=== PATIENT | male | born 1945 | race Caucasian/White ===

== ENCOUNTER → 2020-11-08 12:38 | Outpatient (CLI) | payer MEDICARE, OTHER, SELFPAY ==
--- NOTE | 2020-11-08 12:55 | CR.HP_ITS ---
CR - History & Physical - General Arrival date:: 11/08/20 Arrival time:: 12:57 Date of Referral:: 11/01/20 Date of CR Evaluation:: 11/08/20 Referring Physician: Blair Driver Primary Diagnosis: S/P CABG Z95.1 - History of Present Cardiac Event Onset Date: Enter Onset Date of cardiac illnesses in Comment field below Coronary Artery Bypass Graft:: Yes - 09/22/2020 - Medications Home Medications: Ambulatory Orders Medication Instructions Recorded Acetaminophen 650 mg 11/08/20 Allopurinol 300 mg 11/08/20 Aspirin 81 mg 11/08/20 Clopidogrel 75 mg 11/08/20 Dofetilide 250 mcg 11/08/20 Dutasteride-Tamsulosin 0.5-0.4 11/08/20 Finasteride 5 mg 11/08/20 Metoprolol Succinate 25 mg 11/08/20 - Sleep Disorder Evaluation Hx of Sleep Apnea: Yes Do you snore loudly (louder than talking or can be heard through closed doors)?: Yes Do you often feel tired/ fatigued/ sleepy during daytime?: No Has anyone observed you stop breathing during sleep?: No History of Hypertension (for STOP score): No STOP Results: Negative Advanced Directives - Advanced Directives Power of Motor Coach Bus Driver: Yes Living Will: Yes Advance Directives Information Provided: Yes Advance Directives on File: Yes DNR Order?:: No - MOLST See MOLST form: No Past Medical History - Covid-19 Screening Fever: No Unexplained muscle aches: No Current respiratory symptoms: No Upper respiratory infections symptoms: No Gastro-intestinal symptoms: No Bwh-Dlyh-Tqtbrr symptoms: No Has tested positive for COVID-19 in last 30 days: No Had contact w/person w/symptoms or Covid-19 (+) last 14 days: No Has High Risk Exposures ID'd by Health dept/Inf Control team: No 65 years or older:: Yes Lives in Assisted Living facility:: No Has a chronic lung disease or moderate to severe asthma:: No Has a serious heart condition:: Yes Immunocompromised:: No Severely obese (Body Mass Index of 40 or higher):: No Diabetic:: No Has chronic kidney disease undergoing dialysis:: No Has liver disease:: No - Past Surgical History Surgical History: - - s/p CABG, A-fib s/p ablation, increased BMI, erectile dysfunction, GERD, GOUT, BERLIN, osteoarthritis Social History - Smoking History Smoking Status: Former smoker Years Smokin Packs Smoked per Day: 1.5 Hx Smoking Cessation Date: 08/31/75 Hx Tobacco Use: Yes Hx Smoking Exposure: Yes - Alcohol Use Alcohol Usage: Yes - socially - Substance Abuse Hx Substance Use: No - Occupation Occupation (List type of work in comments):: Retired - Hobbies, Recreation, Social Activities Hobbies: Other - fishing, shooting Recreational Activities: I am able to engage in all my recreational activities Social Environment - Status Marital Status: - Current Living Arrangements Living Environment:: Spouse - Children How many children do you have?: 2 Do any of your children live nearby?: Yes - Safety Do you feel safe in your surroundings?: Yes Review of Systems - Review of Systems Hints: Right click = Denies (Slash). Left click = Reports (Randolph) Review of Present Symptoms: Reports: Heart Arrhythmia/Irregularities - hx of a- fib pt had an ablation, Appetite - Normal, Sleep - Normal. Denies: Shortness of Breath at Rest, Shortness of Breath with Exertion, PVD, Operative Discomfort, Angina, Wound Healing, Dizziness/Lightheadedness, Fatigue, Appetite - Special Diet, Sexual Changes - Pain Is Patient Pain Free?: No Pain Location: other - hip, knee, wrist pain Pain Level: 4/10 Risk Factor Assessment - Vital Signs Pulse Ox: 98 Blood Pressure: 88/60 - Pulse Pulse Rate: 78 Pulse Rhythm: Regular - Obesity Height: 5 ft 9 in Weight:: 105.868 kg Weight in Pounds: 233.4 lbs Body Mass Index (BMI): 34.4 Nutritional Referral for Obesity: No - Physical Inactivity Physical Inactivity: Reg Exercise 30 min/day - Risk Stratification Risk Guidelines: Lowest Risk: Risk Factor for Smoking, Moderate Risk: Risk Factor for Dyslipidemia, Risk Factor for Diabetes, Risk Factor for Obesity, Risk Factor for Hypertension, Risk Factor for Sedentary Lifestyle, Risk Factor for Depression - For Smoking Smoking Risk Guidelines: Smoking Low Risk: None or quit greater than 6 months ago. Smoking Moderate Risk: Smoker or quit 6 months or less ago. Smoking High Risk: Smoker - For Dyslipidemia Dyslipidemia Risk Guidelines: Low Risk: Moderate Risk: High Risk: 15-25% fat 25.1-29% fat >/= 30% fat. <7% sat fat 7-9% sat fat >9% sat fat. <150 mg chol 150-299 mg chol >/= 300 mg chol. LDL <100 LDL 100-129 LDL >/= 130. Chol/HDL ratio <5.0 Chol/HDL ratio 5.0-6.0 Chol/HDL ratio >6.0. Triglycerides <100 Triglycerides 100-149 Triglycerides >/= 150 - For Diabetes Mellitus Diabetes Risk Guidelines: Diabetes Low Risk: HgA1c <6.5% and/or FBG <120. Diabetes Moderate Risk: HgA1c 6.6-7.9% and/or FBG 120-180. Diabetes High Risk: HgA1c >/= 8% and/or FBG >180 - For Obesity/Overweight Obesity/Overweight Risk Guidelines: Obesity Low Risk: BMI <25.0. Obesity Moderate Risk: BMI 25-29.9. Obesity High Risk: BMI >/= 30.0 - For Hypertension Hypertension Risk Guidelines: Hypertension Low Risk: Systolic <120 and Diastolic <80. Hypertension Moderate Risk: Systolic 120-139 and Diastolic 80-89. Hypertension High Risk: Systolic >/= 140 and Diastolic >/= 90 - For Sedentary Lifestyle Sedentary Lifestyle Risk Guidelines: Sedentary Lifestyle Low Risk: >/= 1,500 kcal/week. Sedentary Lifestyle Moderate Risk: 700-1,499 kcal/week. Sedentary Lifestyle High Risk: < 700 kcal/week - For Depression Depression Risk Guidelines: Depression Low Risk: Not clinically depressed. Depression Moderate Risk: Mildly depressed. Depression High Risk: Clinically depressed Motivation - Motivation to Participate On a scale of 1 to 10, how prepared are you to commit to attending program?: 10 What do you see as barriers to successfully being able to complete the program?: none What do you see as the benefits of succesfully completing the program? In other words, what do you hope to get out of participating in the program?: improved health Are there issues you are dealing with that will interfere with completing the program?: none Do you have a spouse or signficant other, family or friends who will help support you to complete the program?: spouse
--- NOTE | 2020-11-08 12:56 | PCM.CR.ITP ---
Diagnosis - General Information Admitting Diagnosis: S/P CABG Personal Learning Style:: Audio/Visual, Demonstration, Group, Individual Preference, Written Barriers to Learning: Cognitive/Learning Impairment, Cultural/Spiritual, Decreased Motivation, Emotional/Anxiety, Hearing Impairment, Language, Low Literacy, Mental Status, No Barriers, Physical Condition/Sensory Deficit, Vision Impairment - Education/Goals Cardiac Rehabilitation Goals: 1. Maintain the individual as the primary focus of care. 2. To improve the patient's quality of life. 3. Identification of cardiac risk factors and provide cardiac risk factor management. 4. Enhance the psychosocial status of the patient. 5. Reconditioning enough to allow the patient to resume customary activities. 6. Control symptoms of cardiac disease Personal Goals: Initial Assessment: Improve energy level, Participate in home exercise program, Improve muscle strength and endurance, Improve diet and eating habits (eat healthier) Scale for measuring improvement of personal goals: Enter appropriate number in Comments. 2 = Unchanged. 3 = Slightly Better. 4 = Moderate Improvement. 5 = Met my Goal - Diagnosis & Disease Process 30 day Reassessments:: Not Met 30 day Reassessments:: Not Met 30 day Reassessments:: Not Met 30 day Reassessments:: Not Met Final Reassessments:: Not Met - Safety Referral to Physical Therapy: No Referral to [facility] Case Management: No Fall Risk Assessed:: Yes Assistive Devices:: None Exercise - Initial Assessment - Visit Date of Eval: 11/08/20 - initial eval Mets: Pre-: >7 METS for 30 minutes by discharge - Stress Test Blood Pressure: 88/60 MET LEVEL:: 3 EKG: Hx of a-fib recent ablation - Physician Prescribed Exercise Modalities: Treadmill, Biodyne, Airdyne, NuStep, SciFit Frequency: 3x/week for 12 weeks [36 sessions] Intensity: 60-80% of age predicted maximum heart rate reserve Current METSs:: 3 Target Heart Rate:: 95-124 Resting Blood Pressure: 88/60 EKG Type: hx a-fib with recent ablation - Outcomes & Goals Goals:: Verbalizes understanding of THR, RPE & goal METS by session 6, Documents in home exercise log/reports 30 min aerobic 5 day/wk by DC, Demonstrates accurate pulse taking by DC, Other additional outcome/goals: see below - Intervention & Plan Exercise Program Goals: Instruct on personal THR & RPE, Instruct on MET level & personal MET goal, Show patient to take own pulse /validate performance until accurate, Instruct on home exercise, Other additional plan/int - Physical Activity Home Exercise Physical Activity - Home Exercise: Safe Exercise, Warm-up, Self-monitoring, Cool-Down, Home Exercise > 30 min Daily, Sitting Time <3 hours/daily - Outcomes & Goals Outcomes/Goals: Demonstrates correct Warm-up/exercise Cool-Down (S3) if = 2.5 METs, Verbalizes symptoms of exercise intolerance by Session 3 (S3), Demonstrate safe equipment use (S3) & follows exercise prescrition (6), Other: See below Nutrition - Initial Assessment - Program Goals Nutrition Program Goals: LDL <100 optimal. 100 - 129 Near optimal. 130 - 159 Borderline High. 160 - 189 High. Total Cholesterol <200 desirable. 200 - 239 Borderline High. >/= 240 High. HDL < 40 Low >/=60 High. Triglycerides <150 desirable. <199 optimal. VlDL 5 - 40. HgbA1C <7%. BMI <25 Patient has diagnosis of Hyperlipidemia (ICD E78)?: Yes - Visit Date of Assessment:: 11/08/20 - initial eval - Cholesterol/Lipids Determine presence & major risk factors that modify LDL goal: Cigarette smoking, Hypertension or hypertensive medication, Low HDL cholesterol <40 mg/dL*, Family history of premature CHD in Male < 55 years: female <65 yearsFa, Age men > 45 years; women >/= 55 years Outcomes/Goals: Pt IDs own risk factors & lifestyle modifications by Session 10, Verbalizes symptoms of angina & response by session 3., Pt independently manages, Other Additional Outcomes/Goals: Intervention/Plan: Advocate for lipid panel cholesterol medication if applicable, Instruct on personal lipid levels & lipid goals/NCEP guidelines, Instruct on cholesterol, Other additional plan/int - Diabetes (Other Core Measures) Diabetes Type: Not Applicable - Weight Mgt (Other Care) Height: 5 ft 9 in Weight:: 105.868 kg BMI: 34.4 Outcomes/Goals: Pt sets, maintains & shows weight loss goal & trend during rehab, Other additional outcomes/goals Intervention/Plan: Instruct on ideal BMI & set weight loss goal w/patient, Assist pt to ID & incorporate diet changes for weight loss by S9, Refer to Structured Weight Loss program as appropriate, Encourage goal of using 250-300dcal per session for weight loss, Other additional plan/interventions - Healthy Eating Habits Will attend diet classes:: Yes Outcomes/Goals:: Consume diet rich in vegs,fruits,whole grain/high fiber,fish,lean meat, Limit sat/trans fats,cholesterol & added salts & sugars, Other additional outcome/goals: Intervention/Plan:: Assess current eating habits, Other Additional plan/interventions - Education Gave educational materials for:: Signs & symptoms of hypoglycemia, Signs & symptoms of hyperglycemia, Relate diabetes to coronary artery disease, Healthy eating Medical - Initial Assessment - Visit Date of Eval: 11/08/20 - initial eval - Medication Compliance Preventative Medication(s):: Aspirin, Beta miriam H/O mental health issues: depression, anxiety, or addiction?: No Doesn?t believe in the benefits of treatment?: No Believes medications are unnecessary or harmful?: No Has a concern about medication side effects?: No Expresses concern over the cost of medications?: No Outcomes/Goals: Verbalizes medications,desired effect & common side effects @ DC, Pt self-reports following medication regimen, Keeps card in wallet w/medications listed by DC, Other additional outcome/goals: Interventions/plans: Instruct on medication effects & side effects, Review medication list w/patient every two weeks, Instruct importance of taking meds as ordered & assist problem solving, Other additional - Tobacco Use Tobacco Use: Non-smoker Do you use smokeless tobacco?: No - Hypertension Hypertension Diagnosis:: Not Applicable [place] [employer] Hypertension Guidelines: [place] [employer] Hypertension Guidelines. Normal BP Less than 120/80. Elevated BP 120/80. Hypertension Stage 1: BP 130-139/80-89. Hypertesnion Stage 2: BP 140 or higher/90 or higher. Hypertension Crisis: BP higher than 180/120 Outcomes/Goals: Able to verbalize/achieve optimal blood pressure <130/80, Incorporates diet changes & exercise for blood pressure control by DC, Other additional outcomes/goals - Tobacco Cessation Referral Smoking Cessation Referral:: No Individual Education/Counseling:: No Education Schedule Given:: Yes Psychosocial - Initial Assess - VIsit Date of Eval: 11/08/20 - initial eval History of previous Mental disease:: No - Target Goals Target Goals: Assess presence or absence of depression. Using a valid screening tool, maximizes coping skills. Positive support system - Psychosocial Test phq-9 Severity: Severity. 1-4 Minimal Depression. 5-9 Mild Depression. 10-14 Moderate Depression. 15-19 Moderately Sever Depression. 20-27 Severe Depression. Rule: - Outcomes/Goals: See list Psychosocial Outcomes/Goals:: ID's personal stressors & 2 strategies to manage stress by discharge, Other Additional outcome/goals: - Intervention/Plan: See List Interventions/Plan:: Assess stressors,coping strategies & signs of derpression on admission, Instruct/assist pt to develop coping & personal stress Mgt strategies, Refer to Behavioral Health if appropriate, Refer to Physician if appropriate, Instruct patient to recognize signs & symptoms of depression, Instruct patient to recog, Other additional plan/intervention Patient Health Questionnaire Initial Assessment 1. Little interest or pleasure in doing things: Not at all 2. Feeling down, depressed, or hopeless: Not at all 3. Trouble falling or staying asleep, or sleeping too much: Not at all 4. Feeling tired or having little energy: Not at all 5. Poor appetite or overeating: Several days 6. Feeling bad about yourself -- or that you are a failure or have let yourself or your family down: Not at all 7. Trouble concentrating on things, such as reading the newspaper or watching television: Not at all 8. Moving or speaking so slowly that other people could have noticed. Or the opposite - being so fidgety or restless that you have been moving around a lot more than usual: Not at all 9. Thoughts that you would be better off , or of hurting yourself in some way: Not at all How difficult have these problems made it for you to do your work, take care of things at home, or get along with other people?: Not difficult at all Total Score: 1 JADA-Q SV Test - Statements CAD is a disease of the arteries in the heart: False Examples of risk factors for heart disease: False Angina is chest pain or discomfort: True The benefits of resistance training include: True Eating more meat and dairy products: False Anti-platelet medications such as aspirin are important: True The only effective way to manage stress: False An exercise warm-up slowly increases heart rate: True Prepared, processed foods usually have high sodium: True Depression is common after a heart attack: True The statin medications lower cholesterol: True To control blood pressure, lower the amount of sodium: True If someone gets chest discomfort during walking: False Transfats are partially hydrogenated vegetable oils: True Sleep apnea that is not treated increases the risk: False To control cholesterol, one should become a vegetarian: False Someone knows if he/she is exercising at the right level: True Diabetes cannot be prevented with exercise & health eating: False Stress is a large risk for heart attack: True A diet that can help lower blood pressure is rich in: I Don't Know - Total Score Total Correct Responses: 18 Self-Efficacy Initial Assessment We would like to know how confident you are in doing certain activities. Please select your confidence level for:: Select your confidence level for the following using the scale 1-10 where 1 is not at all confident and 10 is totally confident. Your score is the average of all 6 responses. Fatigue: How confident are you that you can keep the fatigue caused by your disease from interfering with the things you want to do? Select Number: 10 Physical Discomfort or Pain: How confident are you that you can keep the physical discomfort or pain of your disease from interfering with the things you want to do? Select Number: 10 Emotional Distress: How confident are you that you can keep the emotional distress caused by your disease from interfering with the things you want to do? Select Number: 10 Other Symptoms or Health Problems: How confident are you that you can keep other symptoms or health problems from interfering with the things you want to do? Select Number: 9 Different Tasks and Activities: How confident are you that you can do the different tasks and activities needed to manage your health condition so as to reduce your need to see a doctor? Select Number: 10 Medication: How confident are you that you can do things other than just taking medication to reduce how much your illness affects your everyday life? Select Number: 10 Total Score:: 9 Nutrition Survey - Nutrition Survey Instructions Scoring Instructions: Scoring is as follows: Yes = 1 points. No = 0 point. Patient score that is >/=12 is considered to be at potential nutritional risk and could benefit from a referral to a registered dietitian. - Nutrition Survey Initial Have you lost >10 lbs over the past 2 months without trying?: Yes Are you following a special diet at home for diabetes, low fat, or low salt?: No Are you interested in meeting with a dietitian for help understanding your diet?: No Do you eat less than 3 meals a day?: No Do you eat fatty meats (mendoza, sausage, ribs, etc), fried foods, desserts, large amounts of salad dressings, margarine, butter, or cheese most days?: Yes Do you have food allergies? [Enter types in comment field]: No Do you eat in restaurants more than 3 times a week?: No Do you season food with salt, seasoning salt, or garlic salt?: No Do you used canned, boxed, frozen meals, or soups, seasoning packets?: No Total Score:: 2
[2020-11-08 14:16] VITALS: BP 88/60; BMI 34.4
[2020-11-08 14:17] VITALS: BP 88/60; PULSE 78; O2SAT 98; BMI 34.4
== END ==
PROVIDERS: PCP Internal Medicine Infectious Disease; Referring Provider Internal Medicine Cardiovascular Disease; Visit Provider Internal Medicine Cardiovascular Disease
DX: Z95.1 Presence of aortocoronary bypass graft (principal); Z87.891 Personal history of nicotine dependence

== ENCOUNTER 2020-11-26 09:15 | Outpatient (RCR) | payer MEDICARE, OTHER, SELFPAY ==
[2020-11-08 13:54] VITALS: BMI 34.4
== END 2020-11-28 23:59 ==
LOC: CR 09:15
PROVIDERS: PCP Internal Medicine Infectious Disease
DX: I25.2 Old myocardial infarction (principal); Z95.1 Presence of aortocoronary bypass graft; Z95.5 Presence of coronary angioplasty implant and graft
CPT/HCPCS: 93798

== ENCOUNTER 2020-12-03 09:15 | Outpatient (RCR) | payer MEDICARE, OTHER, SELFPAY ==
[2020-11-08 14:16] VITALS: BMI 34.4
[2020-11-08 14:17] VITALS: BMI 34.4
--- NOTE | 2020-12-03 07:09 | PCM.CR.ITP ---
Exercise - 30-day Assessment - Visit Date of Eval: 12/03/20 Session #:: 8 - started 11/12/2020 - Physician Prescribed Exercise Modalities: Treadmill, Rower, Airdyne, NuStep Frequency: 3x/week for 12 weeks [36 sessions] Intensity: 60-80% of age predicted maximum heart rate reserve Current METSs:: 5.0 increased from 3.5 Target Heart Rate:: 95-124 Current RPE:: 12-13 Maximum Excercise HR:: 135 Resting Blood Pressure: 110/60 Maximum Exercise Blood Pressure: 130/68 EKG Type: NSR to sinus tach with rare PVCs - Outcomes & Goals Goals:: Verbalizes understanding of THR, RPE & goal METS by session 6, Documents in home exercise log/reports 30 min aerobic 5 day/wk by DC, Demonstrates accurate pulse taking by DC - Intervention & Plan Exercise Program Goals: Instruct on personal THR & RPE, Instruct on MET level & personal MET goal, Show patient to take own pulse /validate performance until accurate, Instruct on home exercise - 30-day Reassessments 30 day Reassessments:: Progressing - Physical Activity Home Exercise Physical Activity - Home Exercise: Safe Exercise, Warm-up, Self-monitoring, Cool-Down, Home Exercise > 30 min Daily, Sitting Time <3 hours/daily - Outcomes & Goals Outcomes/Goals: Demonstrates correct Warm-up/exercise Cool-Down (S3) if = 2.5 METs, Verbalizes symptoms of exercise intolerance by Session 3 (S3), Demonstrate safe equipment use (S3) & follows exercise prescrition (6) - Intervention & Plan Plan/Intervention: Instruct warm-up & cool-down if exercising at > 2 METs, Instruct on symptoms of exercise intolerance & actions to take, Instruct & monitor on saf, Assess intial functional capacity & safety risk - 30-day Reassessments 30 day Reassessments:: Progressing Nutrition - 30-Day Assessment - Program Goals Nutrition Program Goals: LDL <100 optimal. 100 - 129 Near optimal. 130 - 159 Borderline High. 160 - 189 High. Total Cholesterol <200 desirable. 200 - 239 Borderline High. >/= 240 High. HDL < 40 Low >/=60 High. Triglycerides <150 desirable. <199 optimal. VlDL 5 - 40. HgbA1C <7%. BMI <25 Patient has diagnosis of Hyperlipidemia (ICD E78)?: Yes - Visit Date of Assessment:: 12/03/20 Session #:: 8 - Cholesterol/Lipids Triglycerides (mg/dL): 0 - not made available to [facility] Determine presence & major risk factors that modify LDL goal: Hypertension or hypertensive medication, Family history of premature CHD in Male < 55 years: female <65 yearsFa, Age men > 45 years; women >/= 55 years Outcomes/Goals: Pt IDs own risk factors & lifestyle modifications by Session 10, Verbalizes symptoms of angina & response by session 3., Pt independently manages Intervention/Plan: Instruct on personal lipid levels & lipid goals/NCEP guidelines, Instruct on cholesterol Referral to dietitian:: Yes 30-day Reassessments:: Progressing - Diabetes (Other Core Measures) Diabetes Type: Not Applicable - Weight Mgt (Other Care) Not Applicable: No Height: 5 ft 9 in - Weight:: 229 lb 8 oz - Down from 233.5 BMI: 33.9 Diagnosis Overweight/Obesity BMI> 30% ICD-10 E66: Yes Diagnosis High BMI/Morbid Obesity BMI> 35% ICD-10 Z68: No Outcomes/Goals: Pt sets, maintains & shows weight loss goal & trend during rehab Intervention/Plan: Instruct on ideal BMI & set weight loss goal w/patient, Assist pt to ID & incorporate diet changes for weight loss by S9, Refer to Structured Weight Loss program as appropriate, Encourage goal of using 250-300dcal per session for weight loss 30 day Reassessments:: Progressing - Healthy Eating Habits Will attend diet classes:: Yes Outcomes/Goals:: Consume diet rich in vegs,fruits,whole grain/high fiber,fish,lean meat, Limit sat/trans fats,cholesterol & added salts & sugars Intervention/Plan:: Assess current eating habits 30-day Reassessments:: Progressing Medical- 30-Day Assessment - Visit Date of Eval: 12/03/20 Session #:: 8 - Medication Compliance Preventative Medication(s):: Aspirin, Clopidogrel/P2Y12 inhibit, Statin/lipid, Beta miriam H/O mental health issues: depression, anxiety, or addiction?: No Doesn?t believe in the benefits of treatment?: No Believes medications are unnecessary or harmful?: No Has a concern about medication side effects?: No Expresses concern over the cost of medications?: No Outcomes/Goals: Verbalizes medications,desired effect & common side effects @ DC, Pt self-reports following medication regimen, Keeps card in wallet w/medications listed by DC Interventions/plans: Instruct on medication effects & side effects, Review medication list w/patient every two weeks, Instruct importance of taking meds as ordered & assist problem solving 30-day Reassessments:: Progressing - Tobacco Use Tobacco Use: Non-smoker - Hypertension Hypertension Diagnosis:: Hypertension ICD-10 I10 Resting Blood Pressure:: 110/60 - controlled on medication [place] [employer] Hypertension Guidelines: [place] [employer] Hypertension Guidelines. Normal BP Less than 120/80. Elevated BP 120/80. Hypertension Stage 1: BP 130-139/80-89. Hypertesnion Stage 2: BP 140 or higher/90 or higher. Hypertension Crisis: BP higher than 180/120 Peak Exercise Blood Pressure:: 130/68 Outcomes/Goals: Able to verbalize/achieve optimal blood pressure <130/80, Incorporates diet changes & exercise for blood pressure control by DC Interventions/plan: Instruct on optimal blood pressure, hypertension & medications, Instruct on effects of sodium, alcohol, stress, exercise &hypertension 30 day Reassessments:: Progressing - Tobacco Cessation Referral Smoking Cessation Referral:: No Individual Education/Counseling:: No Education Schedule Given:: Yes Psychosocial - 30-Day Assess - VIsit Date of Eval: 12/03/20 Session #:: 8 Not Applicable: Yes History of previous Mental disease:: No - Target Goals Target Goals: Assess presence or absence of depression. Using a valid screening tool, maximizes coping skills. Positive support system - Psychosocial Test Tool Used:: PHQ-9 Questionnaire phq-9 Severity: Severity. 1-4 Minimal Depression. 5-9 Mild Depression. 10-14 Moderate Depression. 15-19 Moderately Sever Depression. 20-27 Severe Depression. Rule: - Referral to Behavioral Health PS - Interventions: Yes Attend Stress Management Classes, No Referral to Behavioral Health if PHQ-9 score >9:, No Referral to [facility], No Referral to Physician if PHQ-9 if score is 5-9: - Outcomes/Goals: See list Psychosocial Outcomes/Goals:: ID's personal stressors & 2 strategies to manage stress by discharge - Intervention/Plan: See List Interventions/Plan:: Assess stressors,coping strategies & signs of derpression on admission, Instruct/assist pt to develop coping & personal stress Mgt strategies, Instruct patient to recognize signs & symptoms of depression, Instruct patient to recog - 30-day Reassessments: 30 day Reassessments:: Progressing Patient Health Questionnaire 30-Day Re-eval Assessment 1. Little interest or pleasure in doing things: Not at all 2. Feeling down, depressed, or hopeless: Not at all 3. Trouble falling or staying asleep, or sleeping too much: Not at all 4. Feeling tired or having little energy: Not at all 5. Poor appetite or overeating: Not at all 6. Feeling bad about yourself -- or that you are a failure or have let yourself or your family down: Not at all 7. Trouble concentrating on things, such as reading the newspaper or watching television: Not at all 8. Moving or speaking so slowly that other people could have noticed. Or the opposite - being so fidgety or restless that you have been moving around a lot more than usual: Not at all 9. Thoughts that you would be better off , or of hurting yourself in some way: Not at all How difficult have these problems made it for you to do your work, take care of things at home, or get along with other people?: Not difficult at all Total Score: 0 Self-Efficacy 30-Day Re-eval Assessment We would like to know how confident you are in doing certain activities. Please select your confidence level for:: Select your confidence level for the following using the scale 1-10 where 1 is not at all confident and 10 is totally confident. Your score is the average of all 6 responses. Fatigue: How confident are you that you can keep the fatigue caused by your disease from interfering with the things you want to do? Select Number: 10 Physical Discomfort or Pain: How confident are you that you can keep the physical discomfort or pain of your disease from interfering with the things you want to do? Select Number: 10 Emotional Distress: How confident are you that you can keep the emotional distress caused by your disease from interfering with the things you want to do? Select Number: 10 Other Symptoms or Health Problems: How confident are you that you can keep other symptoms or health problems from interfering with the things you want to do? Select Number: 10 Different Tasks and Activities: How confident are you that you can do the different tasks and activities needed to manage your health condition so as to reduce your need to see a doctor? Select Number: 10 Medication: How confident are you that you can do things other than just taking medication to reduce how much your illness affects your everyday life? Select Number: 10 Total Score:: 10
[2020-12-03 07:16] VITALS: BP 110/60; BP 130/68; BMI 33.9
== END 2020-12-29 23:59 ==
LOC: CR 09:15
PROVIDERS: PCP Internal Medicine Infectious Disease
DX: I25.2 Old myocardial infarction (principal); Z95.1 Presence of aortocoronary bypass graft; Z95.5 Presence of coronary angioplasty implant and graft
CPT/HCPCS: 93798

== ENCOUNTER → 2022-10-26 | Outpatient (CLI) | payer MEDICARE, OTHER, SELFPAY | END | disposition home or self-care (01) | LOC: LABSPEC 16:30 | PROVIDERS: PCP Internal Medicine; Referring Provider Urology; Visit Provider Urology | DX: N30.00 Acute cystitis without hematuria (principal) | CPT/HCPCS: 87086 ==

== ENCOUNTER 2023-11-25 19:23 | Emergency (ER) | payer MEDICARE, OTHER, SELFPAY ==
[2023-11-25 19:23] VITALS: BP 138/73; PULSE 70; RESP 14; TEMP 36.5; O2SAT 98; BMI 34.5
--- NOTE | 2023-11-25 19:33 | EX.ED.UPPERE ---
HPI History of Present Illness Chief Complaint: Upper Extremity Injury Narrative Narrative: 78-year-old male, [id number], presents with injury to his right hand that he sustained yesterday. 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 He was holding a pad to allow them to swing against his body, and hit the pad. His right hand was underneath it. One of the boys had struck the dorsum of his hand as it was near the edge of the pad. Patient states that he had moved his hand and allow another player to swing, and hit him in the dorsum of the hand underneath the pad, causing him pain. He now has pain when he moves his right index finger. He has noticed swelling on the dorsum of his right hand. He thinks maybe he either has a sprain of his tendon versus a stress fracture . He denies other injury. Although it may have broke the skin, he states that his tetanus immunization is current. He denies other injury. His wanted to come to make sure that his hand was not broken. [facility] Medical History Arthritis Back problem Carpal tunnel syndrome, left Difficulty in urination Gout Hearing problem Heart disease History of cardioversion Presence of tooth-root and mandibular implants Vascular disease Home Medications Allopurinol 300 mg PO QHS 05/10/22 [History Last Taken Unknown] Finasteride 5 mg PO 1XD 05/10/22 [History Last Taken Unknown] tamsulosin 0.4 mg capsule 0.4 mg PO DAILY 05/10/22 [History Last Taken Unknown] aspirin 81 mg capsule 81 mg PO DAILY 11/25/23 [History Last Taken Unknown] rosuvastatin 10 mg tablet 10 mg PO QHS 11/25/23 [History Last Taken Unknown] sildenafil (pulm.hypertension) 20 mg tablet (Revatio) 20 mg PO Q24H 11/25/23 [History Last Taken Unknown] Allergy/AdvReac Type Severity Reaction Status Date / Time No Known Allergies Allergy Verified 11/25/23 19:24 Family History Father Alcoholism Cancer Heart disease Myocardial infarction Mother Arthritis Myocardial infarction Heart disease Surgical History H/O angioplasty H/O cervical spine surgery H/O colonoscopy H/O left heart catheterization by ventricular puncture History of hernia surgery History of left knee replacement History of quadruple bypass History of right hip replacement History of tonsillectomy Previous back surgery S/P arthroscopic surgery of left knee S/P arthroscopic surgery of right knee Social History adopted: No household members: spouse housing: house number of children: 2 current occupational status: retired 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 HEENT: No sore throat. No neck pain. No loss of vision. No rhinorrhea. Cardiovascular: No chest pain. No palpitations. No pedal edema. Respiratory: No cough, no shortness of breath. Abdominal: No abdominal pain. No nausea. No vomiting. Genitourinary: No dysuria. No hematuria. Musculoskeletal: No myalgias. Right hand pain, and swelling on dorsum. Neurologic: No headaches. No dizziness. No lightheadedness. Skin: No rash. No change in color. Psychiatric: No depression. No anxiety. EXAM Physical Exam Narrative Exam Narrative: Afebrile. Vital signs noted. HEENT: Normocephalic. Atraumatic. PERRL, EOMI. Neck soft and supple. No point tenderness or step off. Cardiovascular: Regular rate and rhythm. No murmurs, rubs, or gallops appreciated. Respiratory: No tachypnea. Lungs clear to auscultation bilaterally. Gastrointestinal: Abdomen soft, nontender, with normoactive bowel sounds. No rebound or guarding. Neurological: Awake. Alert. Nonfocal, nonlateralizing. Skin: No rash. Normal color. No pallor. Musculoskeletal: No pedal edema. Swelling on dorsum of right hand at base of second digit and along second metacarpal. Good capillary refill all fingers. Able to oppose thumb. Uninjured at wrist and above.. Const Vital Signs: 11/25/23 19:23 Temperature 97.7 F L Temperature Source Temporal Pulse Rate 70 Respiratory Rate 14 Blood Pressure 138/73 H Blood Pressure Mean 94 Pulse Ox 98 Oxygen Delivery Method Room Air MDM MDM MDM Narrative Medical decision making narrative: Patient states he took Tylenol prior to arrival and declines analgesia here. In the differential diagnosis is hand contusion versus fracture of metacarpal/other bone. X-rays were obtained of the right hand in 3 views and interpreted independently by myself. There is a midshaft fracture of the second metacarpal. I reviewed the radiology report which confirms my independent interpretation. I discussed patient with Dr. Ennis with orthopedics who would like the patient placed in a volar resting splint made with Ortho-Glass and follow-up as an outpatient. Patient declined any stronger narcotic analgesia and prefers [id number] medications. Additionally, I offered a sling for comfort should his splint become too heavy and he declined this as well. At this point in time, I feel he can be discharged to follow-up. Return instructions to the emergency department reviewed. Disposition is discharged home in stable condition. Procedures Upper Extremity Splints Upper Extremity Splint: Orthoglass and Volar Splint Fabrication: Fabricated Location: Right Discharge Plan Triage Chief Complaint: Upper Extremity Injury ED Provider: Gui Willis Dx/Rx/DC Orders Clinical Impression: Fracture, metacarpal shaft, Contusion of hand, right Instructions: ED Closed Hand Fracture (Adult) Prescriptions: No Action tamsulosin 0.4 mg capsule 0.4 mg PO DAILY Rx Instructions: take 2 caps daily Allopurinol 300 mg PO QHS Finasteride 5 mg PO 1XD aspirin 81 mg capsule 81 mg PO DAILY rosuvastatin 10 mg tablet 10 mg PO QHS Patient Comments: TAKE 2 TABLETS BY MOUTH EVERY DAY AT BEDTIME sildenafil (pulm.hypertension) [Revatio] 20 mg tablet 20 mg PO Q24H Primary Care Provider: Isa Funez Referrals: Mike Ennis MD [Med Staff - Active Staff] - 1 Week Isa Funez MD [Primary Care Provider] - Activity Restrictions/Additional Instructions: Call tomorrow for an appointment to be seen by orthopedics. Continue [id number] medications as needed for analgesia. Ice and elevate your right hand when you can. Disposition Disposition: Home, Self Care
--- NOTE | 2023-11-25 19:35 | RAD_ITS ---
STUDY: XR Hand Min 3 Views REASON FOR EXAM: Male, 78 years old. Trauma TECHNIQUE: XR Hand Min 3 Views RIGHT COMPARISON: None. FINDINGS: There is joint space narrowing of the radiocarpal articulation consistent with degenerative arthrosis. Normal distal radioulnar joint. Normal visualized carpal bones. Normal carpal articulations There is degenerative arthrosis of the carpometacarpal (CMC) articulation of the thumb. Normal second through fifth carpometacarpal joints. Fractures of the midshaft of the second metacarpal bone. There is degenerative arthrosis of the metacarpophalangeal (MCP) joints. There is degenerative arthrosis of the interphalangeal joint of the thumb with articular joint space narrowing. Normal proximal and distal phalanges of the thumb. Normal metacarpophalangeal joints of the second through fifth fingers. There is diffuse articular joint space narrowing of the distal interphalangeal joints of the second through fifth fingers, but without erosive changes or periarticular soft tissue swelling. Normal phalanges of the second through fifth fingers. The soft tissue structures are unremarkable. RAD/Hand Min 3 Views IMPRESSION: Fractures of the midshaft of the second metacarpal bone. Electronically Signed: Molina Eaton MD at 19:51 EST ,
--- OUTSIDE RECORDS SUMMARY | 2023-11-25 19:53 | XMS RPT_ITS | CCD ---
Author Name Unknown Address [address] [place] [address] Organization [facility] Care Team Providers Care Staff Trainer Name Role Phone Jennifer Davies Unavailable Podugu, Blair Unavailable Unavailable Lovell Salinas Mauro Unavailable Unavailable Lovell, Salinas Mauro Unavailable Unavailable [facility], Physician Unavailable Unavailable [facility], Physician Unavailable Unavailable Lovell, Salinas A Unavailable Unavailable Lovell, Salinas A Unavailable Unavailable VA, Physician Unavailable Unavailable Lovell, Salinas A Unavailable Unavailable Lovell, Salinas Mauro Unavailable Unavailable Jennifer Davies Unavailable Unavailable Jennifer Davies Primary Care Provider [phone] Podugu, Blair Unavailable Unavailable Omnilsa, Yasser Primary Care Provider [phone] Neisha, Blair Unavailable Unavailable Jennifer Davies MD Primary Care Provider [phone] Blair Driver MD Unavailable Unavailable SALINAS LOVELL Attending Unavailable DESTINEE DAVIESSSWIL Primary Care Unavailable SALINAS LOVELL Admitting Unavailable JENNIFER DAVIES Primary Care Unavailable SALINAS LOVELL Referring Unavailable SALINAS LOVELL Attending Unavailable OMNILSA, YASSER Primary Care Unavailable SALINAS LOVELL Attending Unavailable OMRAN, YASSER Primary Care Unavailable KEKE MONCADA, DR RODRIGUEZ Primary Care Physician KEKE MONCADA, DR RODRIGUEZ Primary Care Physician JAGDEEP MONCADA, VESTA Primary Care Physician [phone] JAGDEEP MONCADA, VESTA Primary Care Unavailable NEISHA MONCADA, DR MARIE Attending Unavailable APURVA MONCADA, DR GILMAN Consulting Unavailab marshal GANNON MD, VESTA Primary Care Unavailable WAI LAWSON MD Admitting Unavailable WAI LAWSON MD Attending Unavailable NEISHA MONCADA, DR MARIE Referring Unavailable KISHOR BYRD MD Attending Unavailable JENNIFER DAVIES MD Consulting Unavailable KISHOR BYRD MD Admitting Unavailable KISHOR BYRD MD Primary Care Unavailable PROVIDER, UNKNOWN Consulting Unavailable PROVIDER, UNKNOWN Consulting Unavailable PROVIDER, UNKNOWN Consulting Unavailable JENNIFER DAVIES MD Consulting Unavailable ALAN [employer]GG [employer]CHO[employer] JANITOR Admitting Unavailable FISH, ALAN SCHOOL JANITOR Primary Care Unavailable FISH, ALAN SCHOOL JANITOR Attending Unavailable PROVIDER, UNKNOWN Consulting Unavailable PROVIDER, UNKNOWN Consulting Unavailable PROVIDER, UNKNOWN Consulting Unavailable Allergies Allergy Classification Reported Allergen(s) Allergy Type Date of Onset Reaction(s) Facility (1 source) No Known Medication Allergies; Translations: [No Known Medication Allergies] Propensity to adverse reactions to drug (disorder) [facility] Repository (1 source) No Known Allergies; Translations: [No Known Allergies] Propensity to adverse reactions to drug (disorder) [facility] Repository Medications Current Medications Medication Drug Class(es) Dates Sig (Normalized) Sig (Original) acetaminophen 325 mg oral capsule (1 source) Start: 07-20-2021 acetaminophen 325 mg oral capsule Dose : 325 mg = 1 cap(s), Oral, q4h, PRN as needed for fever, # 20 cap(s), 0 Refill(s) Start Date: 07/20/21 Status: Ordered allopurinol 300 mg oral tablet (15 sources) Xanthine Oxidase Inhibitor Start: 02-25-2020 allopurinol 300 mg oral tablet Dose : 300 mg = 1 tab(s), Oral, qDayPC, 0 Refill(s) Start Date: 02/25/20 Status: Ordered Completed/Discontinued Medications Medication Drug Class(es) Dates Sig (Normalized) Sig (Original) acetaminophen 325 mg / oxyCODONE hydrochloride 5 mg oral tablet (1 source) Opioid Agonist Start: 10-04-2017 End: 10-17-2017 oxyCODONE-acetamin ophen (PERCOCET) 5-325 mg per tablet aspirin 81 mg delayed release oral tablet (6 sources) Nonsteroidal Anti-inflammatory Drug End: 06-24-2020 take 1 tablet by mouth once daily aspirin 81 MG EC tablet Take 81 mg by mouth daily. 0 06/24/2020 Discontinued (Discontinued by another clinician) naproxen 500 mg oral tablet (5 sources) Nonsteroidal Anti-inflammatory Drug End: 06-24-2020 take 1 tablet by mouth once daily naproxen (NAPROSYN) 500 MG tablet Take 500 mg by mouth daily. 0 06/24/2020 Discontinued (Discontinued by another clinician) Problems Active Problems Problem Classification Problem Date Documented Da te Episodic/Chronic Cardiac dysrhythmias (5 sources) Paroxysmal atrial fibrillation 01-05-2020 Chronic Coronary atherosclerosis and other heart disease (5 sources) Coronary arteriosclerosis 01-05-2020 Chronic Past or Other Problems Problem Classification Problem Date Documented Da te Episodic/Chronic Unclassified (1 source) Primary osteoarthritis of both hips Results Test Name Value Interpretation Reference Range Facil ity Vital Signs Date Time Vital Sign Value Performing Clinician Facility 10-27-2021 10:30-0500 Body temperature 96.62 [degF] DR GEOVANNY GURROLA MD [facility] 10-27-2021 10:30-0500 Diastolic blood pressure 82 mm[Hg] DR GEOVANNY GURROLA MD [facility] 10-27-2021 10:30-0500 Heart rate 80 /min DR GEOVANNY GURROLA MD [facility] 10-27-2021 10:30-0500 Mean blood pressure 100 mm[Hg] DR GEOVANNY GURROLA MD [facility] 10-27-2021 10:30-0500 Reason For Taking VItal Signs DR GEOVANNY GURROLA MD [facility] 10-27-2021 10:30-0500 Respiratory rate 16 /min DR GEOVANNY GURROLA MD [facility] 10-27-2021 10:30-0500 Systolic blood pressure 136 mm[Hg] DR GEOVANNY GURROLA MD [facility] 10-27-2021 10:16-0500 Body temperature 96.98 [degF] DR GEOVANNY GURROLA MD [facility] 10-27-2021 10:16-0500 Diastolic Blood Pressure NBP [address] GEOVANNY GURROLA MD [facility] 10-27-2021 10:16-0500 Heart rate 81 /min DR GEOVANNY GURROLA MD [facility] 10-27-2021 10:16-0500 Mean blood pressure 86 mm[Hg] DR GEOVANNY GURROLA MD [facility] 10-27-2021 10:16-0500 Respiratory rate 18 /min DR GEOVANNY GURROLA MD [facility] 10-27-2021 10:16-0500 Systolic Blood Pressure NBP [address] GEOVANNY GURROLA MD [facility] 10-27-2021 10:03-0500 Diastolic Blood Pressure NBP [address] GEOVANNY GURROLA MD [facility] 10-27-2021 10:03-0500 Heart rate 77 /min DR GEOVANNY GURROLA MD [facility] 10-27-2021 10:03-0500 Mean blood pressure 82 mm[Hg] DR GEOVANNY GURROLA MD [facility] 10-27-2021 10:03-0500 Respiratory rate 16 /min DR GEOVANNY GURROLA MD [facility] 10-27-2021 10:03-0500 Systolic Blood Pressure NBP [address] GEOVANNY GURROLA MD [facility] 10-27-2021 09:47-0500 Diastolic Blood Pressure NBP [address] GEOVANNY GURROLA MD [facility] 10-27-2021 09:47-0500 Mean blood pressure 92 mm[Hg] DR GEOVANNY GURROLA MD [facility] 10-27-2021 09:47-0500 Systolic Blood Pressure NBP [address] GEOVANNY GURROLA MD [facility] 10-27-2021 09:32-0500 Body temperature 96.8 [degF] DR GEOVANNY GURROLA MD [facility] 10-27-2021 08:50-0500 Body temperature 96.64 [degF] DR GEOVANNY GURROLA MD [facility] 10-27-2021 08:45-0500 Body temperature 96.57 [degF] DR GEOVANNY GURROLA MD [facility] 10-27-2021 08:40-0500 Body temperature 96.55 [degF] DR GEOVANNY GURROLA MD [facility] 10-27-2021 05:40-0500 Body height 175.[address] GEOVANNY GURROLA MD [facility] 10-27-2021 05:40-0500 Body weight 97.[address] GEOVANNY GURROLA MD [facility] 10-27-2021 05:40-0500 Diastolic blood pressure 70 mm[Hg] DR GEOVANNY GURROLA MD [facility] 10-27-2021 05:40-0500 Heart rate 66 /min DR GEOVANNY GURROLA MD [facility] 10-27-2021 05:40-0500 Mean blood pressure 86 mm[Hg] DR GEOVANNY GURROLA MD [facility] 10-27-2021 05:40-0500 Systolic blood pressure 118 mm[Hg] DR GEOVANNY GURROLA MD [facility] 10-24-2021 13:16-0500 Body height 175.[address] GEOVANNY GURROLA MD [facility] 10-24-2021 13:16-0500 Body temperature 97.34 [degF] DR GEOVANNY GURROLA MD [facility] 10-24-2021 13:16-0500 Body weight 101.[address] GEOVANNY GURROLA MD [facility] 10-24-2021 13:16-0500 Body weight 33 kg/m2 DR GEOVANNY GURROLA MD [facility] 10-24-2021 13:16-0500 diastolic 66 mm[Hg] DR GEOVANNY GURROLA MD [facility] 10-24-2021 13:16-0500 Heart rate 66 /min DR GEOVANNY GURROLA MD [facility] 10-24-2021 13:16-0500 systolic 109 mm[Hg] DR GEOVANNY GURROLA MD [facility] 06-24-2020 10:15-0400 BMI (Body Mass Index) 33.97 kg/m2 Sal[place] [facility] 06-24-2020 10:15-0400 Body weight 104.33 kg Salinas [facility] 06-24-2020 10:15-0400 Height 175.3 cm Sal[place] [facility] 12-04-2019 08:27-0500 BMI (Body Mass Index) 33.67 kg/m2 [place] [facility] 12-04-2019 08:27-0500 Body weight 103.42 kg Salinas [facility] 12-04-2019 08:27-0500 Height 175.3 cm [facility] 07-24-2018 15:10-0400 BMI (Body Mass Index) 31.31 kg/m2 [facility] 07-24-2018 15:10-0400 Height 175.3 cm [facility] 07-24-2018 15:10-0400 Weight 96.16 kg [facility] 11-14-2017 12:58-0500 BMI (Body Mass Index) 33.97 kg/m2 [facility] 11-14-2017 12:58-0500 Height 175.3 cm [place] [facility] Work Phone: 11-14-2017 12:58-0500 Weight 104.33 kg Salinas [facility] Work Phone: 10-17-2017 13:05-0500 BMI (Body Mass Index) 33.97 kg/m2 [facility]: 10-17-2017 13:05-0500 Height 175.3 cm Sal[place] [facility] Work Phone: 10-17-2017 13:05-0500 [facility] 104.33 [facility] 06-20-2017 15:12-0400 BMI (Body Mass Index) 33.97 kg/m2 [facility]: 06-20-2017 15:12-0400 Height 175.3 cm [place] [facility] Work Phone: 06-20-2017 15:120400 Weight 104.33 kg Salinas Lovell [facility] Work Phone: Encounters Encounter Date Encounter Type Care Provider Facility Start: 09-25-2023 ambulatory KISHOR MONCADA [facility] Start: 09-14-2023 End: 09-15-[address] KALINA MIXON MD Facility:A Start: 09-12-2023 End: 09-13-2023 ambulatory VESTA GANNON MD Facility:A Start: 09-12-2023 End: 09-12-[address] BLAIR DRIVER MD [facility] Start: 09-04-2023 End: 09-04-2023 ambulatory JENNIFER MONCADA [facility] Start: 11-09-2021 End: 11-09-[address] GEOVANNY GURROLA MD [facility] Start: 10-27-2021 End: 10-27-[address] GEOVANNY GURROLA MD [facility] Start: 10-24-2021 End: 10-24-[address] GEOVANNY GURROLA MD [facility] Start: 09-21-2021 End: 09-21-[address] GEOVANNY GURROLA MD [facility] Start: 05-09-2021 End: 05-13-2021 ambulatory SALINAS LOVELL [facility] Start: 05-09-2021 End: 05-09-2021 Office outpatient visit 15 minutes [place] Lovell MD Work Phone: [facility] Procedures Date Procedure Procedure Detail Performing Clinician Start: 01-27-2022 Incisional hernia (disorder) DR GEOVANNY GURROLA MD Plan of Treatment Date Care Activity Detail Author Start: 06-01-2021 Influenza vaccination Sequential Influenza Vaccine (#1) [facility] Start: 12-22-2020 CLASS III : OFFICE VISIT CLASS III : OFFICE VISIT [facility] Start: 06-29-2020 End: 06-29-2020 Scanned Document 06/29/2020 Scanned Document Sports Medicine [place] Lovell MD [address] [place] [address] [phone] [facility] Start: 06-01-2020 Influenza vaccination given Sequential Influenza Vaccine (#1) [facility] Start: 06-01-2019 Influenza vaccination given SEQUENTIAL INFLUENZA VACCINE (#1) [facility] Start: 06-01-2018 Influenza vaccination SEQUENTIAL INFLUENZA VACCINE (#1) [facility] Start: 12-27-2017 Ambulatory 12/27/2017 Follow-Up Sports Medicine Sal[place] Lovell MD [address] [facility] [place] [address] [phone] [facility] Start: 11-14-2017 Ambulatory 11/14/2017 Follow-Up Sports Medicine [place] Lovell MD [address] [facility] [place] [address] [phone] [facility] Start: 08-15-2017 Ambulatory 08/15/2017 Office Visit Sports Medicine Sal[place] Lovell MD [address] [facility] [place] [address] [phone] [facility] Start: 06-21-2017 Ambulatory 06/21/2017 Scanned Document Sports Medicine Salinas Lovell MD [address] [place] [address] [phone] [facility] Start: 06-01-2017 Influenza vaccination SEQUENTIAL INFLUENZA VACCINE (#1) [facility] Work Phone: Start: 2011 Fall risk assessment Falls Risk Assessment [facility] Start: 2011 Pneumococcal vaccination PNEUMOCOCCAL VACCINE AGE 65+ (1 of 2 - PCV13) [facility] Work Phone: Start: 2011 Pneumococcal Vaccine: Age 65+ (1 of 1 - PPSV23) Pneumococcal Vaccine: Age 65+ (1 of 1 - PPSV23) [facility] Start: 2011 Ultrasound scan of abdominal aorta ABDOMINAL AORTIC ULTRASOUND [facility] Work Phone: Start: 2006 Zoster vacc, sc ZOSTER VACCINE [facility] Work Phone: Start: 1996 Administration of herpes zoster vaccine Zoster Vaccines (1 of 2) [facility] Start: 1996 Screening for malignant neoplasm of colon [facility] Start: 1996 ZOSTER VACCINES (1 of 2) ZOSTER VACCINES (1 of 2) [facility] Start: 1964 Hepatitis C antibody, confirmatory test Hepatitis C Screening [facility] Start: 1964 Hepatitis C screening Hepatitis C Screening [facility] Start: 1962 COVID-19 Vaccine (1 of 2) COVID-19 Vaccine (1 of 2) [facility] Start: 1958 Adolescent depression screening assessment Depression Screening (PHQ9) [facility] Start: 1958 COVID-19 Vaccine (1) COVID-19 Vaccine (1) [facility] Start: 1958 Depression screening using PHQ-9 (Patient Health Questionnaire 9) score Depression Screening (PHQ9) [facility] Start: 1949 History and physical examination, annual for health maintenance Wellness Visit [facility] Start: 1946 Abdominal aortic aneurysm screening Abdominal Aortic Ultrasound [facility] Start: 1946 CLASS III : CREATININE CLASS III : CREATININE [facility] Start: 1946 CLASS III : EKG CLASS III : EKG [facility] Start: 1946 CLASS III : POTASSIUM CLASS III : POTASSIUM [facility] Start: 1946 Class III: Magnesium Class III: Magnesium [facility] Start: 1946 Depression screening using PHQ-9 (Patient Health Questionnaire 9) score Depression Screening (PHQ9) [facility] Start: 1946 Fall risk assessment Falls Risk Assessment [facility] Start: 1946 Hepatitis C antibody, confirmatory test HEPATITIS C SCREENING [facility] Start: 1946 Prostate specific antigen measurement PSA Level [facility] Start: 1946 Screening for malignant neoplasm of colon Colorectal Cancer Screening: Colonoscopy [facility] Start: 1946 US scan of abdominal aorta Abdominal Aortic Ultrasound [facility] Start: 1946 HEPATITIS C SCREENING HEPATITIS C SCREENING [facility] Work Phone: Start: 1946 Screening colonoscopy COLONOSCOPY [facility] Work Phone: Start: 1946 End: 1946 Tetanus vaccination [facility] Work Phone: Payers Date Payer Category Payer Medicare 2014 Unknown xxxxxxxxx [id number] 3 2014 Unknown [id number] 3 2014 Unknown [facility] [id number] 2014-Present [id number] 2011 Medicare MEDICARE MEDICAR E PART A & B xxxxxxxxxxx 2011-Present [place] xxxxxxxxxxx [id number] 2011 Medicare MEDICARE MEDICAR E PART A & B [id number] 2011-Present [place] [id number] 2011 Medicare [id number] 1946 Unknown [id number] 1946 Unknown [id number] 1946 Unknown [id number] 1946 Unknown [id number] 1946 Unknown [id number] 1946 Unknown [id number] 1946 Unknown [id number] 1946 Unknown [id number] Medicare xxxxxxxxxx [id number] 3 [employer] ([employer] and others) [id number] Medicare [id number] 3 Social History Date Type Detail Facility Start: 12-27-2017 End: 09-19-2021 Tobacco smoking status [facility] Former smoker [facility] Phone: Medical Equipment Procedure Code Equipment Code Equipment Origin al Text Equipment Identifier Dates FDA Start: 10-27-2021 FDA Start: 10-27-2021 Robotic Assisted Laparoscopic Ventral He Unknown 10/27/[address] [facility] Start: 10-27-2021 Hospital Discharge instructions 10-27-2021 Note Date & Type Note Facility 10-27-2021 Hospital Discharg e instructions Patient Education 10/27/2021 10:59:33 -[facility] Discharge Instructions Template (07/2018) (CUSTOM) PHILIP SAME DAY SURGERY DISCHARGE INSTRUCTIONS PLEASE FOLLOW THE INSTRUCTIONS BELOW MARKED WITH AN X: _x__ Regular Diet: Start with clear liquids, then soup and crackers and gradually add other foods. _x__ Drink extra fluids. ___ Special Diet Instructions: ___ ACTIVITY: _x__ Avoid stress to suture line. Since you have had an anesthetic, it would be advisable not to drive, drink alcohol, or make major decisions over the next 24 hours. You may require more rest tonight and tomorrow. ___ May resume regular activity as tolerated. ___ Restrict activity as follows: ___ ___ Walk Only ___ ___ Do not go up and down stairs. ___ Do not ride in car until ___ ___ Do not drive car. ___ Do not have sexual intercourse. x___ No heavy lifting, pushing or straining. _x__ Other: _Follow Dr. Gurrola's verbal and printed instructions.__ BATHING/SHOWERING: ___ Sponge bathe until office visit. ___ Sitting in tub of warm water may relieve discomfort. ___ May tub bathe ___ May shower ___ On day after surgery sit in tub of warm water to soak off dressing. DRESSING: ___ Keep operative area dry and clean for ___ ___ Check the operative area for signs of bleeding. Apply pressure to the bleeding site if necessary and call your physician. ___ Change dressing as necessary using sterile dressing material or bandaid. ___ Reinforce dressing as necessary. ___ Change and care for wound as follows: ___ ___ Wear bra for ___ days following breast surgery for comfort. ___ Change drip pad as needed. ___ Wear scrotal support for comfort. WATCH FOR SIGNS OF INFECTION: (Usually appears 36-48 hours after surgery) Increased temperature (101 degrees Fahrenheit or higher) Redness or swelling Increased pain Foul odor or drainage. If you have any questions, please call your doctor at the number listed on your follow up instructions. Follow all instructions given to you by your physician. Please complete and return the survey you will be receiving in the mail to help us better serve our patients. Form: [id number]) R: 01/0710/27/2021 10:59:33 [facility] Hernia-Robot, Surgical Repair, Care After ([id number]) ([id number]) Hernia, Surgical Repair-Robotic Care After Refer to this sheet in the next few weeks. These discharge instructions provide you with general information on caring for yourself after you leave the hospital. Your caregiver may also give you specific instructions. Your treatment has been planned according to the most current medical practices available, but unavoidable complications sometimes occur. If you have any problems or questions after discharge, please call your caregiver. HOME CARE INSTRUCTIONS It is normal to be sore for a couple weeks after surgery. See your caregiver if this seems to be getting worse rather than better. Put ice on the operative site. ? Put ice in a plastic bag. ? Place a towel between your skin and the bag. ? Leave the ice on for 20 minutes at a time, every 2-3 hours for the first 2 days. Change bandages in 48 hours and leave open to air as directed. Keep the wound dry and clean. The wound may be washed gently with soap and water. Gently blot or dab the wound dry. Do not take baths, use swimming pools, or use hot tubs for 10 days, or as directed by your caregiver. Only take [id number] or prescription medicines for pain, discomfort, or fever as directed by your caregiver. Continue your normal diet as directed. Do not drive until your caregiver says it is okay. Do not play contact sports for 3 weeks, or as directed. Make an appointment to see your caregiver for stitches (sutures ) or staple removal when instructed. YOU MAY DO NORMAL ACTIVITIES TOLERATED, BUT NO EXTREME LIFTING OR VIGOROUS EXERCISE UNTIL FOLLOW-UP APPOINTMENT SEEK MEDICAL CARE IF: You have increased bleeding coming from the wounds. You have blood in your stool. You see redness, swelling, or have increasing pain in the wounds. You have fluid (pus ) coming from the wound. You have an oral temperature above 101.5. You notice a bad smell coming from the wound or dressing. You develop lightheadedness or feel faint. SEEK IMMEDIATE MEDICAL CARE IF: You develop a rash. You have difficulty breathing. You develop any reaction or side effects to medicines given. MAKE SURE YOU: Understand these instructions. Will watch your condition. Will get help right away if you are not doing well or get worse. Document Released: 04/06/2006 Document Revised: 09/05/2012 Document Reviewed: 08/17/2010 [facility] Patient Information 2012 [employer]. 10/27/2021 10:59:00 Laparoscopic Ventral Hernia Repair, Care After Laparoscopic Ventral Hernia Repair, Care After This sheet gives you information about how to care for yourself after your procedure. Your health care provider may also give you more specific instructions. If you have problems or questions, contact your health care provider. What can I expect after the procedure? After the procedure, it is common to have: Pain, discomfort, or soreness. Follow these instructions at home: Incision care Follow instructions from your health care provider about how to take care of your incision. Make sure you: ?Wash your hands with soap and water before you change your bandage (dressing) or before you touch your abdomen. If soap and water are not available, use hand heavy equipment mechanic. ?Change your dressing as told by your health care provider. ?Leave stitches (sutures), skin glue, or adhesive strips in place. These skin closures may need to stay in place for 2 weeks or longer. If adhesive strip edges start to loosen and curl up, you may trim the loose edges. Do not remove adhesive strips completely unless your health care provider tells you to do that. Check your incision area every day for signs of infection. Check for: ?Redness, swelling, or pain. ?Fluid or blood. ?Warmth. ?Pus or a bad smell. Bathing Do not take baths, swim, or use a hot tub until your health care provider approves. Ask your health care provider if you can take showers. You may only be allowed to take sponge baths for bathing. Keep your bandage (dressing) dry until your health care provider says it can be removed. Activity Do not lift anything that is heavier than 10 lb (4.5 kg) until your health care provider approves. Do not drive or use heavy machinery while taking prescription pain medicine. Ask your health care provider when it is safe for you to drive or use heavy machinery. Do not drive for 24 hours if you were given a medicine to help you relax (sedative) during your procedure. Rest as told by your health care provider. You may return to your normal activities when your health care provider approves. General instructions Take iqhc-ihy-xsrjohq and prescription medicines only as told by your health care provider. To prevent or treat constipation while you are taking prescription pain medicine, your health care provider may recommend that you: ?Take haap-lme-usgghvf or prescription medicines. ?Eat foods that are high in fiber, such as fresh fruits and vegetables, whole grains, and beans. ?Limit foods that are high in fat and processed sugars, such as fried and sweet foods. Drink enough fluid to keep your urine clear or pale yellow. Hold a pillow over your abdomen when you cough or sneeze. This helps with pain. Keep all follow-up visits as told by your health care provider. This is important. Contact a health care provider if: You have: ?A fever or chills. ?Redness, swelling, or pain around your incision. ?Fluid or blood coming from your incision. ?Pus or a bad smell coming from your incision. ?Pain that gets worse or does not get better with medicine. ?Nausea or vomiting. ?A cough. ?Shortness of breath. Your incision feels warm to the touch. You have not had a bowel movement in three days. You are not able to urinate. Get help right away if: You have severe pain in your abdomen. You have persistent nausea and vomiting. You have redness, warmth, or pain in your leg. You have chest pain. You have trouble breathing. Summary After this procedure, it is common to have pain, discomfort, or soreness. Follow instructions from your health care provider about how to take care of your incision. Check your incision area every day for signs of infection. Report any signs of infection to your health care provider. Keep all follow-up visits as told by your health care provider. This is important. This information is not intended to replace advice given to you by your health care provider. Make sure you discuss any questions you have with your health care provider. Document Released: 09/03/2013 Document Revised: 08/30/2018 Document Reviewed: 05/09/2017 [employer] Patient Education 2020 [employer] Follow Up Care 09/21/2021 14:12:14 With:GEOVANNY GURROLA MD, Surgery Address: [phone] When: Unknown Comments:call office for follow-up appointment With:GEOVANNY GURROLA Address: [address] [place], [place] [id number]- [facility] (1) When: Unknown Comments:Follow-up with Dr. Gurrola in 10-14 daysPlease call the office with any questions or concernsIbuprofen/Advil/Motrin 400 mg by mouth 4 times a day with meals; may alternate with 650 mg of Tylenol 4 times a day With:JENNIFER DAVIES Address:Unknown When: Unknown [facility] Evaluation + Plan note 10-26-2021 Note Date & Type Note Facility Symptomatic incisional herni a History of coronary disease History of coronary artery bypass grafting x4 PLAN: To the patient symptoms and physical findings I recommended operative intervention. Robotically assisted laparoscopic incisional hernia repair with mesh. The risks, benefits, alternatives, limitations and merits of operative and nonoperative therapy were discussed with the patient. Consent was obtained. [facility] History of Present illness Narrative 05-09-2021 Salinas Lovell MD - 05/09/2021 4:46 PM EDT Note Date & Type Note Facility 05-09-2021 History of Presen t illness Narrative Dictation on: 05/09/2021 4:49 PM by: SALINAS LOVELL [[id number]] documented in this encounter [facility] Evaluation + Plan note Note Date & Type Note Facility Evaluation + Plan note Future Appointments [facility] Evaluation + Plan note Radiology Note Date & Type Note Facility Evaluation + Plan note Future Appointments Appointment Date:09/14/2023 09:30:00 AM Scheduled Provider: Location:Heart Lab Appointment Type:CV Procedure - Heart Lab/Hybrid OR Appointment Date:10/08/2023 02:30:00 PM Scheduled Provider: Location:[facility] Appointment Type:CV OV Future Scheduled TestsNM Myocardial Spect Rest/Stress 08/31/23 [facility] Evaluation note Note Date & Type Note Facility documented in this encounter [facility] Hospital course Narrative Note Date & Type Note Facility Hospital course Narrative No data available for this section [facility] Hospital Discharge instructions Note Date & Type Note Facility Hospital Discharge instructions No data available for this section [facility] Progress note Note Date & Type Note Facility Progress note No data available for this section [facility] Assessments Diagnosis Status post total replacemen t of right hip - Primary Diagnosis Primary osteoarthritis of ri ght hip - Primary Diagnosis Primary osteoarthritis of ri ght hip - Primary Diagnosis Status post total replacemen t of right hip - Primary Diagnosis Primary osteoarthritis of ri ght hip - Primary Diagnosis Primary osteoarthritis of harshad th hips - Primary Diagnosis Primary osteoarthritis of both hips Diagnosis Primary osteoarthritis of both hips- Primary Summary Purpose Family History No Family History Records FoundNo Family History Records FoundNo Family History Records FoundNo Family History Records Found No data available for this section No Family History Records FoundNo Family History Records Found Advance Directives No Advanced Directives Records FoundDocuments on File Type Date Recorded 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 Patient examined to review pertinent physical findings.: No significant changes Home Medications Reviewed: no changes noted Allergies Reviewed: no changes noted This patient has been seen and discussed with the attending physician responsible for performing the procedure: yes Pre-Procedure Verification: Pre-Procedure Verification and Time Out: Procedure Locationbedside PRE-PROCEDURE Verificationcompleted TIME OUT - Final Verificationcompleted General Information: Date/Time of Procedure: 09-Dec-2019 Post-Procedure Diagnosis: Primary arthritis, left hip Procedure Name: Left hip arthrogram with steroid injection Findings: Mild arthritis, left hip Procedure performed by: va Radio Control Crane Operator(s): none Estimated Blood Loss: none Specimen: no Indication(s): diagnostic, therapeutic Informed Consent: written consent obtained Procedure Details: Procedure De (more content not included)... Note History & Physical Reviewed: I have reviewed the History and Physical dated: 16-Jun-2020 History and Physical reviewed and relevant findings noted. Patient examined to review pertinent physical findings.: No significant changes Home Medications Reviewed: no changes noted Allergies Reviewed: no changes noted Pre-Procedure Verification: Pre-Procedure Verification and Time Out: Procedure Locationprocedure area HUDDLE - Pre-procedure Verificationcompleted TIME OUT - Final Verificationcompleted DEBRIEFcompleted General Information: Date/Time of Procedure: 29-Jun-2020 Post-Procedure Diagnosis: Primary arthritis left hip Procedure Name: Left hip arthrogram steroid injection Findings: grossly normal anatomy Procedure performed by: Radio Control Crane Operator(s): none Estimated Blood Loss: none Specimen: no Indication(s): therapeutic Informed Consent: written consent obtained Procedure Details: Procedure Details: Patient was seen in the x-ray suite and consent was given for a left hip and steroid injection t (more content not included)... Additional Source Comments (unrecognized sect ion and content) No Status Records FoundNo Status Records FoundNo Status Records FoundNo Status Records FoundNo Status Records FoundNo Status Records Found INFORMATION SOURCE (unrecogn ized section and content) DATE CREATED AUTHOR AUTHOR'S ORGANIZ ATION 07/31/2019 [facility] DATE CREATED AUTHOR AUTHOR'S ORGANIZ ATION 07/05/2020 [facility] DATE CREATED AUTHOR AUTHOR'S ORGANIZ ATION 05/14/2021 [facility] DATE CREATED AUTHOR AUTHOR'S ORGANIZ ATION 09/21/2023 [facility] DATE CREATED AUTHOR AUTHOR'S ORGANIZ ATION 09/27/2023 [facility] Reason for Visit (unrecogniz ed section and content) Reason Comments Pain Follow-up Patient Care team informatio n (unrecognized section and content) Care Team Personnel Name: LAVERNE MENDEZ MD Member Role: Cardiothoracic Surgeon Address: Address: [address] [place] [address] [address] [facility] Cardiothoracic Surgery [place], [place] [address] Name: NEHA MONTES DE OCA MD Position: P4 Physician - Cardiology Member Role: Marketing Operations Intern Address: Address: [address] [facility] [place] [address]- Name: GEOVANNY GURROLA MD Position: P4 Physician - General Surgery Member Role: Surgeon Address: Address: [address] [facility] [address] [facility] [place] [address]- Name: VESTA GANNON MD Member Role: Primary Care Physician Address: Address: [address] [place] [address] [address] [place] [address]- Name: BLAIR DRIVER MD Position: P4 Physician - Cardiology Member Role: Incubator Operator Address: Address: [address] [facility] [place] [address] [place] Care Team Related Persons Name: JUAN RODRIGUEZ Address: Home [address] [place], [place] [id number] Name: TELLO LOVELL FOR RECORDS PERTAINING TO PATIENTS WHO ARE OR HAVE BEEN ENROLLED IN A CHEMICAL DEPENDENCY/SUBSTANCEABUSE PROGRAM, SOME INFORMATION MAY BE OMITTED. This clinical summary was aggregated from multiple sources. Caution should be exercised in using it in the provision of clinical care. This summary normalizes information from multiple sources, and as a consequence, information in this document may materially change the coding, format and clinical context of patient data. In addition, data may be omitted in some cases. CLINICAL DECISIONS SHOULD BE BASED ON THE PRIMARY CLINICAL RECORDS. [employer] provides no warranty or guarantee of the accuracy or completeness of information in this document.
[2023-11-25 20:21] VITALS: BP 129/67; PULSE 71; RESP 16; TEMP 36.7; O2SAT 97
== END 2023-11-25 20:25 | disposition home or self-care (01) ==
PROVIDERS: Emergency Provider Emergency Medicine; PCP Internal Medicine; Visit Provider Emergency Medicine
DX: S62.320A Displaced fracture of shaft of second metacarpal bone, right hand, initial encounter for closed fracture (principal); S60.221A Contusion of right hand, initial encounter; Z87.891 Personal history of nicotine dependence; W22.8XXA Striking against or struck by other objects, initial encounter; Y93.64 Activity, baseball; M10.9 Gout, unspecified; Z79.899 Other long term (current) drug therapy; Z96.652 Presence of left artificial knee joint; Z96.641 Presence of right artificial hip joint
CPT/HCPCS: 29125; 73130; 99282

== ENCOUNTER → 2023-12-03 | Outpatient (CLI) | payer MEDICARE, OTHER, SELFPAY ==
--- OUTSIDE RECORDS SUMMARY | 2023-12-03 11:23 | XMS RPT_ITS | CCD ---
Author Name Unknown Address [address] [place] [address] Organization [facility] Care Team Providers Care Rehabilitation Therapist Name Role Phone Jennifer Davies Unavailable Podugu, Blair Unavailable Unavailable Lovell Salinas Mauro Unavailable Unavailable Lovell, Salinas Mauro Unavailable Unavailable [facility], Physician Unavailable Unavailable [facility], Physician Unavailable Unavailable Lovell, Salinas A Unavailable Unavailable Lovell, Salinas A Unavailable Unavailable VA, Physician Unavailable Unavailable Lovell, Salinas A Unavailable Unavailable Lovell, Salinas Mauro Unavailable Unavailable Jennifer Davies Unavailable Unavailable Jennifer Davies Primary Care Provider Podugu, Blair Unavailable Unavailable Omnilsa, Yasser Primary Care Provider [phone] Neisha, Blair Unavailable Unavailable Jennifer Davies MD Primary Care Provider Blair Driver MD Unavailable Unavailable SALINAS LOVELL [...] JAGDEEP MONCADA, VESTA Primary Care Physician [phone] JAGDEEP MONCADA, VESTA Primary Care Unavailable NEISHA [...] JENNIFER DAVIES MD Consulting Unavailable ALAN GREGG POWER SUPERINTENDENT Admitting Unavailable FISH, ALAN POWER SUPERINTENDENT Primary Care Unavailable FISH, ALAN POWER SUPERINTENDENT Attending Unavailable PROVIDER, UNKNOWN Consulting Unavailable PROVIDER, UNKNOWN Consulting Unavailable PROVIDER, UNKNOWN Consulting Unavailable Allergies Allergy Classification Reported Allergen(s) Allergy Type Date of Onset Reaction(s) Facility (1 source) No Known Medication Allergies; Translations: [No Known Medication Allergies] Propensity to adverse reactions to drug (disorder) [facility] Repository (1 source) No Known Allergies; Translations: [No Known Allergies] Propensity to adverse reactions to drug (disorder) [facility] Medications Current Medications Medication Drug [...] temperature 96.62 [degF] DR GEOVANNY GURROLA MD [facility] 10-27-2021 10:30-0500 Diastolic blood pressure 82 mm[Hg] DR GEOVANNY GURROLA MD [facility] 10-27-2021 10:30-0500 Heart rate 80 /min DR GEOVANNY GURROLA MD [facility] 10-27-2021 10:30-0500 Mean blood pressure 100 mm[Hg] DR GEOVANNY GURROLA MD [facility] 10-27-2021 10:30-0500 Reason For Taking VItal Signs DR GEOVANNY GURROLA MD [facility] 10-27-2021 10:30-0500 Respiratory rate 16 /min DR GEOVANNY GURROLA MD [facility] 10-27-2021 10:30-0500 Systolic blood pressure 136 mm[Hg] DR GEOVANNY GURROLA MD [facility] 10-27-2021 10:16-0500 Body temperature 96.98 [degF] DR GEOVANNY GURROLA MD [facility] 10-27-2021 10:16-0500 Diastolic Blood Pressure NBP [address] GEOVANNY GURROLA MD [facility] 10-27-2021 10:16-0500 Heart rate 81 /min DR GEOVANNY GURROLA MD [facility] 10-27-2021 10:16-0500 Mean blood pressure 86 mm[Hg] DR GEOVANNY GURROLA MD [facility] 10-27-2021 10:16-0500 Respiratory rate 18 /min DR GEOVANNY GURROLA MD [facility] 10-27-2021 10:16-0500 Systolic Blood Pressure NBP [address] GEOVANNY GURROLA MD [facility] 10-27-2021 10:03-0500 Diastolic Blood Pressure NBP [address] GEOVANNY GURROLA MD [facility] 10-27-2021 10:03-0500 Heart rate 77 /min DR GEOVANNY GURROLA MD [facility] 10-27-2021 10:03-0500 Mean blood pressure 82 mm[Hg] DR GEOVANNY GURROLA MD [facility] 10-27-2021 10:03-0500 Respiratory rate 16 /min DR GEOVANNY GURROLA MD [facility] 10-27-2021 10:03-0500 Systolic Blood Pressure NBP [address] GEOVANNY GURROLA MD [facility] 10-27-2021 09:47-0500 Diastolic Blood Pressure NBP [address] GEOVANNY GURROLA MD [facility] 10-27-2021 09:47-0500 Mean blood pressure 92 mm[Hg] DR GEOVANNY GURROLA MD [facility] 10-27-2021 09:47-0500 Systolic Blood Pressure NBP [address] GEOVANNY GURROLA MD [facility] 10-27-2021 09:32-0500 Body temperature 96.8 [degF] DR GEOVANNY GURROLA MD [facility] 10-27-2021 08:50-0500 Body temperature 96.64 [degF] DR GEOVANNY GURROLA MD [facility] 10-27-2021 08:45-0500 Body temperature 96.57 [degF] DR GEOVANNY GURROLA MD [facility] 10-27-2021 08:40-0500 Body temperature 96.55 [degF] DR GEOVANNY GURROLA MD [facility] 10-27-2021 05:40-0500 Body height 175.[address] GEOVANNY GURROLA MD [facility] 10-27-2021 05:40-0500 Body weight 97.[address] GEOVANNY GURROLA MD [facility] 10-27-2021 05:40-0500 Diastolic blood pressure 70 mm[Hg] DR GEOVANNY GURROLA MD [facility] 10-27-2021 05:40-0500 Heart rate 66 /min DR GEOVANNY GURROLA MD [facility] 10-27-2021 05:40-0500 Mean blood pressure 86 mm[Hg] DR GEOVANNY GURROLA MD [facility] 10-27-2021 05:40-0500 Systolic blood pressure 118 mm[Hg] DR GEOVANNY GURROLA MD [facility] 10-24-2021 13:16-0500 Body height 175.[address] GEOVANNY GURROLA MD [facility] 10-24-2021 13:16-0500 Body temperature 97.34 [degF] DR GEOVANNY GURROLA MD [facility] 10-24-2021 13:16-0500 Body weight 101.[address] GEOVANNY GURROLA MD [facility] 10-24-2021 13:16-0500 Body weight 33 kg/m2 DR GEOVANNY GURROLA MD [facility] 10-24-2021 13:16-0500 diastolic 66 mm[Hg] DR GEOVANNY GURROLA MD [facility] 10-24-2021 13:16-0500 Heart rate 66 /min DR GEOVANNY GURROLA MD [facility] 10-24-2021 13:16-0500 systolic 109 mm[Hg] DR GEOVANNY GURROLA MD [facility] 06-24-2020 10:15-0400 BMI (Body Mass Index) 33.97 kg/m2 Salinas [facility] 06-24-2020 10:15-0400 Body weight 104.33 kg Salinas [facility] 06-24-2020 10:15-0400 Height 175.3 cm Salinas [facility] 12-04-2019 08:27-0500 BMI (Body Mass Index) 33.67 kg/m2 Salinas [facility] 12-04-2019 08:27-0500 Body weight 103.42 kg Salinas [facility] 12-04-2019 08:27-0500 Height 175.3 cm [facility] 07-24-2018 15:10-0400 BMI (Body Mass Index) 31.31 kg/m2 [facility] 07-24-2018 15:10-0400 Height 175.3 cm [facility] 07-24-2018 15:10-0400 Weight 96.16 kg [facility] 11-14-2017 12:58-0500 BMI (Body Mass Index) 33.97 kg/[facility] 11-14-2017 12:58-0500 Height 175.3 cm Salinas [facility] Work Phone: 11-14-2017 12:58-0500 Weight 104.33 kg Salinas [facility] Work Phone: 10-17-2017 13:05-0500 BMI (Body Mass Index) 33.97 kg/m2 [facility]: 10-17-2017 13:05-0500 Height 175.3 cm Salinas [facility] Work Phone: 10-17-2017 13:05-0500 [facility] 104.33 [facility] 06-20-2017 15:12-0400 BMI (Body Mass Index) 33.97 kg/m2 [facility]: 06-20-2017 15:12-0400 Height 175.3 cm Salinas [facility] Work Phone: 06-20-2017 15:120400 Weight 104.33 kg Salinas Lovell [facility] Work Phone: Encounters Encounter Date Encounter Type Care Provider Facility Start: 09-25-2023 ambulatory KISHOR MONCADA [facility] Start: 09-14-2023 End: 09-15-[address] KALINA MIXON MD Facility:A Start: 09-12-2023 End: 09-13-2023 ambulatory VESTA GANNON MD Facility:A Start: 09-12-2023 End: 09-12-[address] BLAIR DRIVER MD [facility] Start: 09-04-2023 End: 09-04-2023 ambulatory JENNIFER MONCADA [facility] Start: 11-09-2021 End: 11-09-[address] GEOVANNY GURROLA MD [facility] Start: 10-27-2021 End: 10-27-[address] GEOVANNY GURROLA MD [facility] Start: 10-24-2021 End: 10-24-[address] GEOVANNY GURROLA MD [facility] Start: 09-21-2021 End: 09-21-[address] GEOVANNY GURROLA MD [facility] Start: 05-09-2021 End: 05-13-2021 ambulatory SALINAS LOVELL [facility] Start: 05-09-2021 End: 05-09-2021 Office outpatient visit 15 minutes Salinas Lovell MD Work Phone: [facility] Procedures Date Procedure Procedure Detail Performing Clinician Start: 01-27-2022 Incisional hernia (disorder) DR GEOVANNY GURROLA MD Plan of Treatment Date Care Activity Detail Author Start: 06-01-2021 Influenza vaccination Sequential Influenza Vaccine (#1) [facility] Start: 12-22-2020 CLASS III : OFFICE VISIT CLASS III : OFFICE VISIT [facility] Start: 06-29-2020 End: 06-29-2020 Scanned Document 06/29/2020 Scanned Document Sports Medicine Salinas Lovell MD [address] [place] [address] [phone] [facility] Start: 06-01-2020 Influenza vaccination given Sequential Influenza Vaccine (#1) [facility] Start: 06-01-2019 Influenza vaccination given SEQUENTIAL INFLUENZA VACCINE (#1) [facility] Start: 06-01-2018 Influenza vaccination SEQUENTIAL INFLUENZA VACCINE (#1) [facility] Start: 12-27-2017 Ambulatory 12/27/2017 Follow-Up Sports Medicine Salinas Lovell MD [address] [facility] [place] [address] [phone] [facility] Start: 11-14-2017 Ambulatory 11/14/2017 Follow-Up Sports Medicine Salinas Lovell MD [address] [facility] [place] [address] [phone] [facility] Start: 08-15-2017 Ambulatory 08/15/2017 Office Visit Sports Medicine Salinas Lovell MD [address] [place] [address] [phone] [facility] Start: 06-21-2017 Ambulatory 06/21/2017 Scanned Document Sports Medicine Salinas Lovell MD [address] [place] [address] [phone] [facility] Start: 06-01-2017 Influenza vaccination SEQUENTIAL INFLUENZA VACCINE (#1) [facility] Work Phone: Start: 2011 Fall risk assessment Falls Risk Assessment [facility] Start: 2011 Pneumococcal vaccination PNEUMOCOCCAL VACCINE AGE 65+ (1 of 2 - PCV13) [facility] Work Phone: Start: 2011 Pneumococcal Vaccine: Age 65+ (1 of 1 - PPSV23) Pneumococcal Vaccine: Age 65+ (1 of 1 - PPSV23) [facility] Start: 2011 Ultrasound scan of abdominal aorta ABDOMINAL AORTIC ULTRASOUND [facility] Work Phone: Start: 2006 Zoster vacc, sc ZOSTER VACCINE [facility] Work Phone: Start: 1996 Administration of herpes zoster vaccine Zoster Vaccines (1 of 2) [facility] Start: 1996 Screening for malignant neoplasm of colon [facility] Start: 1996 ZOSTER VACCINES (1 of 2) ZOSTER VACCINES (1 of 2) [facility] Start: 1964 Hepatitis C antibody, confirmatory test Hepatitis C Screening [facility] Start: 1964 Hepatitis C screening Hepatitis C Screening [facility] Start: 1962 COVID-19 Vaccine (1 of 2) COVID-19 Vaccine (1 of 2) [facility] Start: 1958 Adolescent depression screening assessment Depression Screening (PHQ9) [facility] Start: 1958 COVID-19 Vaccine (1) COVID-19 Vaccine (1) [facility] Start: 1958 Depression screening using PHQ-9 (Patient Health Questionnaire 9) score Depression Screening (PHQ9) [facility] Start: 1949 History and physical examination, annual for health maintenance Wellness Visit [facility] Start: 1946 Abdominal aortic aneurysm screening [facility]dominal [facility] Start: 1946 CLASS III : CREATININE CLASS III : CREATININE [facility] Start: 1946 CLASS III : EKG CLASS III : EKG [facility] Start: 1946 CLASS III : POTASSIUM CLASS III : POTASSIUM [facility] Start: 1946 Class III: Magnesium Class III: Magnesium [facility] Start: 1946 Depression screening using PHQ-9 (Patient Health Questionnaire 9) score Depression Screening (PHQ9) [facility] Start: 1946 Fall risk assessment Falls Risk Assessment [facility] Start: 1946 Hepatitis C antibody, confirmatory test HEPATITIS C SCREENING [facility] Start: 1946 Prostate specific antigen measurement PSA Level [facility] Start: 1946 Screening for malignant neoplasm of colon Colorectal Cancer Screening: Colonoscopy [facility] Start: 1946 US scan of abdominal aorta Abdominal Aortic Ultrasound [facility] Start: 1946 HEPATITIS C SCREENING HEPATITIS C SCREENING [facility] Work Phone: Start: 1946 Screening colonoscopy COLONOSCOPY [facility] Work Phone: Start: 1946 End: 1946 Tetanus vaccination [facility] Work Phone: Payers Date Payer Category Payer Medicare 2014 Unknown xxxxxxxxx [id number] 2014 Unknown [id number] 3 2014 Unknown [facility] [id number] 2014-Present [id number] 2011 Medicare MEDICARE MEDICAR E PART A & B xxxxxxxxxxx 2011-Present [place] xxxxxxxxxxx [id number] 2011 Medicare MEDICARE MEDICAR E PART A & B [id number] 2011-Present [place] [id number] 2011 Medicare [id number] 1946 Unknown [id number] 1946 Unknown [id number] 1946 Unknown [id number] 1946 Unknown [id number] 1946 Unknown [id number] 1946 Unknown [id number] 1946 Unknown [id number] 1946 Unknown [id number] Medicare xxxxxxxxxx [id number] 3 [employer] ([employer] and others) [id number] Medicare [id number] 3 Social History Date Type Detail Facility Start: 12-27-2017 End: 09-19-2021 Tobacco smoking status [facility] Former smoker [facility] Phone: Medical Equipment Procedure Code Equipment Code Equipment Origin al Text Equipment Identifier Dates FDA Start: 10-27-2021 FDA Start: 10-27-2021 Robotic Assisted Laparoscopic Ventral He Unknown 10/27/[address] [facility] Start: 10-27-2021 Hospital Discharge instructions 10-27-2021 Note Date & Type Note Facility 10-27-2021 Hospital Discharg e instructions Patient Education 10/27/2021 10:59:33 -[facility] Discharge Instructions Template (07/2018) (CUSTOM) PHILIP SAME [...] us better serve our patients. Form: [id number]) R: 01/0710/27/2021 10:59:33 [facility] Hernia-Robot, Surgical Repair, Care After (72007) (96216) Hernia, Surgical Repair-Robotic Care After Refer to [...] as directed by your caregiver. Only take ehpe-wez-wyvtjqa or prescription medicines for pain, discomfort, or [...] 04/06/2006 Document Revised: 09/05/2012 Document Reviewed: 08/17/2010 [facility] Patient Information 2012 [employer]. 10/27/2021 10:59:00 Laparoscopic Ventral Hernia Repair, Care [...] and water are not available, use hand smt operator. ?Change your dressing as told by your [...] health care provider approves. General instructions Take iatr-tdj-tbptwax and prescription medicines only as told by your health care provider. To prevent or treat constipation while you are taking prescription pain medicine, your health care provider may recommend that you: ?Take lfis-bos-xvfgdso or prescription medicines. ?Eat foods that are [...] 09/03/2013 Document Revised: 08/30/2018 Document Reviewed: 05/09/2017 [employer] Patient Education 2020 [employer] Follow Up Care 09/21/2021 14:12:14 With:GEOVANNY GURROLA MD, Surgery Address: [phone] When: Unknown Comments:call office for follow-up appointment With:GEOVANNY GURROLA Address: [address] [place], [place] [id number]- [facility] (1) When: Unknown Comments:Follow-up with Dr. Gurrola in 10-14 daysPlease call the office with any questions or concernsIbuprofen/Advil/Motrin 400 mg by mouth 4 times a day with meals; may alternate with 650 mg of Tylenol 4 times a day With:JENNIFER DAVIES Address:Unknown When: Unknown [facility] Evaluation + Plan note 10-26-2021 Note [...] discussed with the patient. Consent was obtained. [facility] History of Present illness Narrative 05-09-2021 Salinas Lovell MD - 05/09/2021 4:46 PM EDT Note Date & Type Note Facility 05-09-2021 History of Presen t illness Narrative Dictation on: 05/09/2021 4:49 PM by: SALINAS LOVELL [[id number]] documented in this encounter [facility] Evaluation + Plan note Note Date & Type Note Facility Evaluation + Plan note Future Appointments [facility] Evaluation + Plan note Radiology Note Date & Type Note Facility Evaluation + Plan note Future Appointments Appointment Date:09/14/2023 09:30:00 AM Scheduled Provider: Location:Heart Lab Appointment Type:CV Procedure - Heart Lab/Hybrid OR Appointment Date:10/08/2023 02:30:00 PM Scheduled Provider: Location:[facility] Appointment Type:CV OV Future Scheduled TestsNM Myocardial Spect Rest/Stress 08/31/23 [facility] Evaluation note Note Date & Type Note Facility documented in this encounter [facility] Hospital course Narrative Note Date & Type Note Facility Hospital course Narrative No data available for this section [facility] Hospital Discharge instructions Note Date & Type Note Facility Hospital Discharge instructions No data available for this section [facility] Progress note Note Date & Type Note Facility Progress note No data available for this section [facility] Assessments Diagnosis Status post total replacemen [...] FoundDocuments on File Type Date Recorded Patient Publication Manager Expl anation Advance Directives and Living Will History of Present Illness * Salinas Lovell MD - 12/04/2019 9:50 AM EST Dictation on: 12/04/2019 9:54 AM by: SALINAS LOVELL [[id number]] documented in this encounter* Salinas Lovell MD - 06/24/2020 2:05 PM EDT Dictation on: 06/24/2020 2:09 PM by: SALINAS LOVELL [[id number]] documented in this encounter Procedure Findings Note [...] Mild arthritis, left hip Procedure performed by: wi Water Jet Operator(s): none Estimated Blood Loss: none Specimen: [...] Findings: grossly normal anatomy Procedure performed by: Water Jet Operator(s): none Estimated Blood Loss: none Specimen: [...] DATE CREATED AUTHOR AUTHOR'S ORGANIZ ATION 07/31/2019 [facility] DATE CREATED AUTHOR AUTHOR'S ORGANIZ ATION 07/05/2020 [facility] DATE CREATED AUTHOR AUTHOR'S ORGANIZ ATION 05/14/2021 [facility] DATE CREATED AUTHOR AUTHOR'S ORGANIZ ATION 09/21/2023 [facility] DATE CREATED AUTHOR AUTHOR'S ORGANIZ ATION 09/27/2023 [facility] Reason for Visit (unrecogniz ed section and content) Reason Comments Pain Follow-up Patient Care team informatio n (unrecognized section and content) Care Team Personnel Name: LAVERNE MENDEZ MD Member Role: Cardiothoracic Surgeon Address: Address: [address] [place] [address] [address] [facility] Cardiothoracic Surgery [place], [place] [address] Name: NEHA MONTES DE OCA MD Position: P4 Physician - Cardiology Member Role: Lot Associate Address: Address: [address] [facility] [address] [facility] [place] [address]- Name: GEOVANNY GURROLA MD Position: P4 Physician - General Surgery Member Role: Surgeon Address: Address: [address] [facility] [facility] [address] [facility] [place] [address]- Name: VESTA GANNON MD Member Role: Primary Care Physician Address: Address: [address] [place] [address] [address] [place] [address]- Name: BLAIR DRIVER MD Position: P4 Physician - Cardiology Member Role: Rock Crushing Machine Operator Address: Address: [address] [facility] [address] [facility] [place] [address]- [place] Care Team Related Persons Name: JUAN RODRIGUEZ Address: Home [address] [place], [place] [id number] Name: TELLO LOVELL FOR RECORDS PERTAINING TO [...] BE BASED ON THE PRIMARY CLINICAL RECORDS. [employer] provides no warranty or guarantee of the accuracy or completeness of information in this document.
[2023-12-03 11:51] LABS: Erythrocyte Sedimentation Rate 13 mm/hr (0-20)
[2023-12-03 12:15] LABS: Vitamin D,25 Hydroxy 22.3 ng/mL
[2023-12-03 12:40] LABS: ALB/GLOB Ratio 1.2 RATIO (0.9-2.4); AST(SGOT) 28 U/L (15-37); Alanine Aminotransfer ALT/SGPT 38 U/L (16-61); Albumin, Serum 3.7 g/dL (3.2-5.0); Alkaline Phosphatase 52 U/L (45-117); Anion Gap 5 (5-15); BUN 18 mg/dL (7-18); BUN/Creat Ratio 13.6 RATIO (10-20); CRP < 2.90 mg/L (0.0-3.0); Calcium,Total 8.9 mg/dL (8.5-10.1); Chloride 109 mmol/L (98-107); Cholesterol 142 mg/dL (200); Creatinine, Serum 1.32 mg/dL (0.70-1.30); EST Glomerular Filtration Rate 56 mL/min (>60); Est Glom Filt Rate - Afr Amer 68 mL/min (>60); Globulin 3.2 g/dL (2.2-4.2); Glucose 110 mg/dL (74-106); High Density Lipoprotein 43 mg/dL; Potassium 4.1 mmol/L (3.5-5.1); Protein, Total 6.9 g/dL (6.4-8.2); Rheumatoid Factor < 10.0 IU/mL (<15); Sodium Level 140 mmol/L (136-145); Thyroid Stim Hormone (TSH) 2.49 uIU/mL (0.358-3.74); Triglycerides 191 mg/dL; Very Low Density Lipoprotein 38 mg/dL (5-40)
[2023-12-04 11:09] LABS: ANTINUCLEAR ANTIBODIES DIRECT Negative (Negative)
[2023-12-11 11:09] LABS: Angiotensin Convert Enzyme 30 U/L (14-82); CCP IgG Antibodies 25 units (0-19); Cytoplasmic Ab (C-ANCA) <1:20 titer (Neg:<1:20); HLA B27 Negative (.); Perinuclear Ab (P-ANCA) <1:20 titer (Neg:<1:20)
== END | disposition home or self-care (01) ==
LOC: LAB 11:00
PROVIDERS: PCP Internal Medicine; Referring Provider Ophthalmology; Visit Provider Ophthalmology
DX: H16.041 Marginal corneal ulcer, right eye (principal); E55.9 Vitamin D deficiency, unspecified; E78.5 Hyperlipidemia, unspecified; I25.10 Atherosclerotic heart disease of native coronary artery without angina pectoris; N40.1 Benign prostatic hyperplasia with lower urinary tract symptoms; Z12.5 Encounter for screening for malignant neoplasm of prostate; Z13.220 Encounter for screening for lipoid disorders
CPT/HCPCS: 36415; 80053; 80061; 81374; 82164; 82306; 84153; 84443; 85652; 86038; 86140; 86200; 86256; 86431; G0103